=== PATIENT | female | born 2000 | race Caucasian/White ===

== ENCOUNTER 2019-11-21 15:27 | Emergency (ER) | payer OTHER ==
[~2019-11-21] VITALS: Ht 172.7 cm; Wt 63.5 kg
[2019-11-21] MEDS ORDERED: CRYSELLE1 EACH PO (15:36)
[2019-11-21] MEDS ORDERED: BRINTELLIX10 MG PO (15:37)
[2019-11-21] MEDS ORDERED: ADDERALL XR 2020 MG PO (15:38)
[2019-11-21 17:05] LABS: PLATELET COUNT 291 thou/uL (150-400); RDW 13.6 % (10.5-14.5); WBC 6.4 thou/uL (4.0-11.0)
[2019-11-21 17:07] LABS: ABSOLUTE NEUTROPHILS 3.7 thou/uL (1.4-8.2); BASOPHILS 0.5 % (0.0-2.0); EOSINOPHILS 3.2 % (0.0-3.0); HEMATOCRIT 48.6 % (37.0-47.0); HEMOGLOBIN 16.3 gm/dL (12.0-15.0); LYMPHOCYTES 30.7 % (24.0-44.0); MCH 30.9 pg (26.0-34.0); MCHC 33.5 g/dL (28.0-37.0); MCV 92.4 fL (80.0-100.0); MONOCYTES 8.2 % (1.0-8.0); POLYS 57.4 % (36.0-66.0); RBC 5.26 mil/uL (4.20-5.00)
[2019-11-21 17:15] LABS: CALCIUM 9.3 mg/dL (8.5-10.1); CREATININE 0.7 mg/dL (0.6-1.0); POTASSIUM 3.4 mmol/L (3.5-5.1)
[2019-11-21 17:16] LABS: MAGNESIUM 2.3 mg/dL (1.8-2.4)
[2019-11-21 17:54] VITALS: BP 123/87
== END 2019-11-21 17:56 | disposition home or self-care (01) ==
LOC: ER 15:27
PROVIDERS: Emergency Medicine
DX: F41.1 Generalized anxiety disorder (principal); R41.0 Disorientation, unspecified; M54.2 Cervicalgia; R51 Headache; R20.0 Anesthesia of skin; F32.9 Major depressive disorder, single episode, unspecified; Z79.899 Other long term (current) drug therapy

== ENCOUNTER → 2020-03-14 | Outpatient (CLI) | payer OTHER ==
[~2020-03-14] MED LIST: ADDERALL XR 2020 MG PO; BRINTELLIX10 MG PO; CRYSELLE1 EACH PO
== END ==
LOC: LAB 11:25
PROVIDERS: ATTEND Nurse Practitioner
DX: U07.1 COVID-19 (principal); R05 Cough; R50.9 Fever, unspecified; M79.10 Myalgia, unspecified site

== ENCOUNTER 2021-06-11 17:48 | Emergency (ER) | payer OTHER ==
[~2021-06-11] VITALS: Ht 172.7 cm; Wt 68.0 kg
[2021-06-11 19:20] LABS: BASOPHILS 0.8 % (0.0-2.0); HEMATOCRIT 40.5 % (37.0-47.0); HEMOGLOBIN 13.8 gm/dL (12.0-15.0); LYMPHOCYTES 35.5 % (24.0-44.0); MCH 33.2 pg (26.0-34.0); MCHC 34.1 g/dL (28.0-37.0); MCV 97.4 fL (80.0-100.0); MONOCYTES 9.5 % (1.0-8.0); PLATELET COUNT 279 thou/uL (150-400); POLYS 51.2 % (36.0-66.0); RBC 4.16 mil/uL (4.20-5.00); RDW 13.1 % (10.5-14.5); WBC 5.9 thou/uL (4.0-11.0)
[2021-06-11 19:31] LABS: CALCIUM 8.9 mg/dL (8.5-10.1); CREATININE 0.6 mg/dL (0.6-1.0); POTASSIUM 4.4 mmol/L (3.5-5.1)
[2021-06-11] MEDS ORDERED: XANAX 0.5 MG0.5 M1 PO (20:21)
[2021-06-11 20:24] VITALS: BP 134/74
== END 2021-06-11 20:25 | disposition home or self-care (01) ==
LOC: ER 17:48
PROVIDERS: Emergency Medicine
DX: F41.0 Panic disorder [episodic paroxysmal anxiety] (principal); F32.9 Major depressive disorder, single episode, unspecified; Z79.899 Other long term (current) drug therapy